=== PATIENT | female | born 1980 ===

== ENCOUNTER 2016-12-18 05:47 | Day surgery (SDC) | payer OTHER ==
[2016-12-18] MEDS ORDERED: LIDO/EPI 1% **Not for Epidural 20 ML MDV ONE (06:26)
[2016-12-18] MEDS ORDERED: LIDOCAINE 1% 2 ML INJ ID PRN (06:56)
[2016-12-18] MEDS ORDERED: LR 1,000 ML IV ONE (06:56)
[2016-12-18] MEDS ORDERED: FAMOTIDINE 20 MG/NACL 50 ML IV ONE (07:02)
[2016-12-18] MEDS ORDERED: CITRIC ACID/SODIUM CITRATE 30 ML UDCUP PO ONE (07:02)
--- NOTE | 2016-12-18 07:06 | PDANEPAE ---
ANE History of Present Illness t&A ANE Past Medical History - Cardiovascular History Hx Hypertension: No Hx Arrhythmias: No Hx Chest Pain: No Hx Coronary Artery / Peripheral Vascular Disease: No Hx CHF / Valvular Disease: No Hx Palpitations: No - Pulmonary History Hx COPD: No Hx Asthma/Reactive Airway Disease: No Hx Recent Upper Respiratory Infection: No Hx Oxygen in Use at Home: No Hx Sleep Apnea: Yes Sleep Apnea Screening Result - Last Documented: Positive - Neurologic History Hx Cerebrovascular Accident: No Hx Seizures: No Hx Dementia: No - Endocrine History Hx Diabetes: No - Renal History Hx Renal Disorders: No - Liver History Hx Hepatic Disorders: No - Neurological & Psychiatric Hx Hx Neurological and Psychiatric Disorders: Yes Neurological / Psychiatric History Comment: bipolar-well managed w/Rx - Cancer History Hx Cancer: No - Congenital Disorder History Hx Congenital Disorders: No - GI History GERD: mild Hx Gastrointestinal Disorders: No - Other Health History Other Health History: hypertrophy of tonsils. ISABEL -nasal obstruction. on Vyvanse for "binge eating"-lost 40 lbs recently. - Chronic Pain History Chronic Pain: No - Surgical History Prior Surgeries: oophorectomy (ovarian dermoid cyst) ligated other ovary -2014 ANE Review of Systems - Exercise capacity METS (RN): 4 METS ANE Patient History - Allergies Allergies/Adverse Reactions: No Known Allergies Allergy (Verified 12/06/16 11:01) - Home Medications Home Medications: ARIPiprazole [Abilify] 15 mg PO DAILY 11/30/16 [Last Taken Unknown] Amitriptyline HCl [Elavil 100 MG (*)] 100 mg PO HS 11/30/16 [Last Taken Unknown] Cholecalciferol Vit D3 [Vitamin D3 2000 units tab (OTC)] 4,000 units PO DAILY [Last Taken Unknown] Lisdexamfetamine Dimesylate [Vyvanse] 40 mg PO DAILY 11/30/16 [Last Taken Unknown] Loratadine 10 mg PO DAILY 11/30/16 [Last Taken Unknown] - NPO status NPO Since - Liquids (Date): 12/17/16 NPO Since - Liquids (Time): 21:00 NPO Since - Solids (Date): 12/17/16 NPO Since - Solids (Time): 21:00 - Anes Hx Anes Hx: no prior problems - Smoking Hx Smoking Status: Never smoked ANE Labs/Vital Signs - Vital Signs Height: 160.02 cm Weight: 90.718 kg ANE Physical Exam - Airway Mallampati Score: Class 2 Mouth exam: normal dental/mouth exam - Pulmonary Pulmonary: no respiratory distress - Cardiovascular Cardiovascular: regular rate and rhythym - ASA Status ASA Status: II ANE Anesthesia Plan Anesthesia Plan: general endotracheal anesthesia
[2016-12-18] MEDS ORDERED: LIDOCAINE 2% 5 ML SDV ONE (07:09)
[2016-12-18] MEDS ORDERED: ROCURONIUM 50 MG/5 ML VIAL ONE (07:09)
[2016-12-18] MEDS ORDERED: MIDAZOLAM 2 MG/2 ML VIAL ONE (07:09)
[2016-12-18] MEDS ORDERED: fentaNYL 100 MCG/2 ML INJ ONE ×2 (07:09→08:55)
[2016-12-18] MEDS ORDERED: ONDANSETRON 4 MG/2 ML VIAL ONE (07:09)
[2016-12-18] MEDS ORDERED: DEXAMETHASONE 4 MG/ML VIAL ONE ×3 (07:09)
[2016-12-18] MEDS ORDERED: PROPOFOL 200 MG/20 ML VIAL ONE (07:10)
[2016-12-18] MEDS ORDERED: DEXAMETHASONE 10 MG/ML VIAL IVP ONE (07:22)
[2016-12-18] MEDS ORDERED: OXYMETAZOLINE 30 ML NASAL SPRAY EACHNARE ONE (07:22)
--- NOTE | 2016-12-18 07:22 | PDHPUP ---
History & Physical Update H&P update statement: This history and physical update is based on an assessment of the patient which was completed after admission or registration (within 24 hours), but prior to the surgery/procedure.
[2016-12-18] MEDS ORDERED: SUGAMMADEX SODIUM 200 MG/2 ML VIAL IVP ONE (07:45)
[2016-12-18] MEDS ORDERED: ONDANSETRON 4 MG/2 ML VIAL IVP PRN ×2 (07:54→08:33)
[2016-12-18] MEDS ORDERED: HYDROmorphONE/DILAUDID 1 MG/ML SYR IVP PRN (07:54)
[2016-12-18] MEDS ORDERED: MEPERIDINE 25 MG/ML SYR IVP PRN (07:54)
[2016-12-18] MEDS ORDERED: NALOXONE HCL 0.4 MG/ML INJ IVP PRN (07:54)
[2016-12-18] MEDS ORDERED: LR 500 ML IV PRN (07:54)
--- NOTE | 2016-12-18 08:30 | POSTANESTH ---
Post Anesthetic Evaluation Cardiovascular Status: Normal, Stable Respiratory Status: Normal, Stable Level of Consciousness/Mental Status: Can Participate in Eval Pain Control: Adequate, Prn Tx Ordered Nausea/Vomiting Control: Adequate, Prn Tx Ordered Complications Possibly Related to Anesthesia: None Noted
[2016-12-18] MEDS ORDERED: OXYMETAZOLINE 30 ML NASAL SPRAY EACHNARE PRN (08:33)
[2016-12-18] MEDS ORDERED: ACETAMINOPHEN 500 MG TAB PO PRN (08:33)
--- NOTE | 2016-12-18 08:33 | POSTOPPROG ---
Post Op Note Date of Operation: 12/18/16 Surgeon: Angela Pinto Anesthesiologist: Frank Richardson Anesthesia: GET(General Endotracheal) Pre-op Diagnosis: ISABEL, nasal obstruction, AR Post-op Diagnosis: same Procedure: tonsillectomy B, SMR turbs B Findings: 3+ tonsils, enlarged ITs B Inf/Abcess present in the surg proc area at time of surgery?: No EBL: Minimal Complications: none apparent
[2016-12-18] MEDS ORDERED: oxyCODONE ORAL SOLUTION 10 MG/0.5 ML UDSYR PO PRN (08:36)
[2016-12-18] MEDS: fentaNYL 100 MCG/2 ML INJ IVP PRN ×2 (08:56→09:02)
--- NOTE | 2016-12-18 09:02 | GCON ---
[f rep st] CONSULTATION DATE OF CONSULTATION: 12/18/2016 PREOPERATIVE DIAGNOSES: 1. Obstructive sleep apnea. 2. Allergic rhinitis. 3. Nasal obstruction. POSTOPERATIVE DIAGNOSES: 1. Obstructive sleep apnea. 2. Allergic rhinitis. 3. Nasal obstruction. PROCEDURE: 1. Bilateral tonsillectomy. 2. Submucous resection of the inferior turbinates bilaterally. ANESTHESIA: General. COMPLICATIONS: None. BLOOD LOSS: Minimal. FINDINGS: Patient is found have 3+ tonsils with a more patent oropharynx postoperatively. She was also noted to have enlarged inferior turbinates bilaterally. PREOPERATIVE NOTE: The patient is a very pleasant 36-year-old woman who has a history of mild sleep apnea and sleep study. She was referred to me for possible surgical management. She was noted to have large tonsils as well as nasal obstruction and was felt to benefit from the above procedure. DESCRIPTION OF PROCEDURE: The patient was first seen in the preoperative area where informed consent was obtained. She was then brought back to the operating room where Anesthesia sedated and intubated her. The bed was turned 90 degrees. Conrad timeout was performed. She was prepped and draped in a normal fashion, and a shoulder roll was placed. I then placed a Shakir-Tony mouth gag in oral cavity and suspended it giving good visualization of the oropharynx with the above-noted findings. At this point, a red rubber was placed through the right naris, brought out through the oral cavity, and then suspended palate. I then grabbed the right tonsil with a curved Allis clamp, and then electrocautery on a low to intermediate setting was used to remove the tonsil as a whole in a subcapsular plane taking care to stay medial to the musculature, and any small bleeding vessels were cauterized using the bipolar cautery. We then did the exact same thing on the left side removing the tonsil as a whole and sending it off for pathology. She had significantly more patent airway, but I felt that she would benefit from suturing of the pillars, so the anterior and posterior pillars were sutured together using a 3-0 Vicryl in an interrupted fashion on each side to lateralize the pillars and give her a little bit more space in the oropharynx as well. Once this was done, she had no active bleeding, and Shakir-Tony mouth gag was unsuspended and removed. We then did an anterior rhinoscopy. Previously about 1 cc of 1% lidocaine with 1:100,000 epinephrine was injected into the head of the inferior turbinates bilaterally. After this had sufficient time to act, nasal speculum was used to evaluate the right naris, and the turbinate microdebrider was used to perform a submucous resection of the inferior turbinate on the right side through a stab incision in the head of the inferior turbinates. Once this was done, the turbinate blade was removed, and an Afrin-soaked pledget was placed in the right naris. I then did the exact same thing on the left side to remove the turbinate blade and then placed an Afrin pledget. At this point, I then replaced the Shakir-Tony mouth gag just to evaluate the oropharynx. She had a little bit of blood pooling in the oropharynx from the nose. This was suctioned clear. This was irrigated out copiously with normal saline, and an OG tube was used to suction out the stomach, pharynx, and oral cavity. At this point, she was clear with no active bleeding. The suction and Shakir-Tony mouth gag were removed, and patient was turned back over to Anesthesia where she was woken, extubated, and taken to PACU in stable condition. There were no complications. Tolerated procedure well. The Afrin-soaked pledgets were removed after extubation. All pledget and instrument counts were correct. /[id number]/MODL MTDD
[2016-12-18] MEDS ORDERED: ACETAMINOPHEN 650 MG/20.3 ML UDCUP PO PRN (11:12)
[2016-12-18 13:28] VITALS: BP 115/80; PULSE 93; TEMP 98.6; O2SAT 94
[2016-12-18 13:34] VITALS: RESP 18
== END 2016-12-18 13:35 | disposition home or self-care (01) ==
LOC: UNDOADMOB 05:47 → F3E 05:47 → FSGY 05:47 → EDSTATUS 12:30 → UNDODISOB 13:35 → FSGY 13:35
PROVIDERS: ATTEND Otolaryngology
PROC: 09TL8ZZ Resection of Nasal Turbinate, Via Natural or Artificial Opening Endoscopic (ICD-10-PCS; principal; 2016-12-18 07:15)
PROC: 0CTPXZZ Resection of Tonsils, External Approach (ICD-10-PCS; principal; 2016-12-18 07:15)
DX: J35.1 Hypertrophy of tonsils (principal); J34.89 Other specified disorders of nose and nasal sinuses; G47.33 Obstructive sleep apnea (adult) (pediatric)
CPT/HCPCS: J1100; J2250; J2405; J2704; J3010